=== PATIENT | female | born 2000 | race African-American/Black ===

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

== ENCOUNTER 2021-06-19 10:45 | Outpatient (REF) | payer SELFPAY ==
[2021-06-19 15:34] LABS: HCT 40.5 % (36.0-46.0); HGB 13.2 g/dL (11.2-15.7); MCH 29.1 pg (27.0-33.0); MCHC 32.6 % (32.0-36.0); MCV 89.2 fL (80-95); MPV 11.1 fL (8.0-11.0); Platelet Count 223 10^3/uL (130-400); RBC 4.54 10^6/uL (3.93-5.22); RDW 12.2 % (11.7-14.6); RDW-SD 40.6 fL; WBC 9.65 10^3/uL (4.4-10.8)
[2021-06-19 16:31] LABS: ALT 27 U/L (14-59); AST 16 U/L (15-37); Albumin 3.8 g/dL (3.4-5.0); Alkaline Phosphatase 63 U/L (46-116); Anion Gap 9.9 mmol/L (3-11); BUN 7 mg/dL (7-18); Bilirubin, Total 0.8 mg/dL (0.2-1.0); CO2 27.1 mmol/L (21.0-32.0); CREATININE 0.8 mg/dL (0.55-1.02); Calcium 8.9 mg/dL (8.5-10.1); Chloride 102 mmol/L (98-107); Glucose 76 mg/dL (74-106); Potassium 3.8 mmol/L (3.5-5.1); Sodium 139 mmol/L (136-145); Total Protein 7.2 g/dL (6.4-8.2)
== END 2021-06-19 10:46 | disposition home or self-care (01) ==
LOC: NCHCN 10:45
PROVIDERS: PCP Nurse Practitioner; Visit Provider Nurse Practitioner Family
DX: R10.32 Left lower quadrant pain (principal); M54.5 Low back pain
CPT/HCPCS: 80053; 85027; 87077; 87086; 87186

== ENCOUNTER 2023-10-29 15:54 | Emergency (ER) | payer BC, SELFPAY ==
[2023-10-29 15:58] VITALS: BP 125/93; PULSE 138; RESP 18; TEMP 37.1; O2SAT 98
--- NOTE | 2023-10-29 16:11 | ED.GENADUL_ITS ---
Discharge Plan Discharge Details Chief Complaint: PsychEval Primary Care Provider: Ginna Duval ED Provider: Adele Berkowitz Home Meds and New Rx's Prescriptions: No Action fluoxetine [Prozac] 10 MG capsule 10 mg PO DAILY albuterol sulfate [ProAir HFA] 200 PUFF HFA aerosol inhaler 2 puff Inhalation PRN PRN Patient Comments: 08/12/16 pt reports this is for excercise induced asthma. Hasnt played sports since injury. bmr Coontroll Pills 1 tab PO DAILY Medical Decision Making 23 year old female with PMhx of depression, asthma present to ED with suicidal ideation with a plan. Patient states she has had problems sleeping, and plans to take a bunch of sleeping pills, she has Unisom at home, she took 3 last night. Thoughts have been going on for a long time Not currently seeing a counselor in town. Endorses occasional marijuana, Denies alcohol or other illicit drugs. Has a Nexplanon which is . On her current menses. Work up ordered included CBC, CMP, UA, UDS tylenol and salicylate level. eval order placed. Patient placed in paper scrubs. Mom at BS and patient in line of sight of Nurses station. 1635: Upon further questioning, per Mom patient also has not eaten since Tuesday, has been isolating self. She also vomited on way over here, denies any other Vomiting or diarrhea. NS 1 Liter W/O open ordered. 1651: add on GC/Chlamydia UA order placed due to urine positive nitrates, greater than 160 ketones, no leukocytes, culture pending at this time. 1655: Poison Control called, spoke with Lc RN, they recommend routine workup which was already ordered, supportive treatment, and re-check after 4-6 hours if needed. 1747: Heart rate has improved to 89, EKG is poor quality due to artifact and technical difficulties. Meal tray at bedside. Patient does smell of ketones. Patient placed on care management list for women's wellness checkup. CBC shows no leukocytosis, anion gap 17.2, glucose of 59, food is at bedside, urine shows greater than 160 ketones moderate blood positive nitrites 5-10 RBCs negative leukocytes many bacteria culture is pending at this time, salicylates less than 2.8, acetaminophen level is less than 2 opiates are negative methadone is negative UDS does show positive THC negative for benzos. At this time patient is medically cleared for anything emergent. Will page [facility]. 1807: Spoke with psych liason with [facility], will do eval at approx 1830. 1824: Patient took a bite of peanut butter and crackers. updated on POC. 1933: [facility] with patient for eval via zoom . 2013: After eval with [facility] psych liason it has been determined they will seek inpatient treatment for voluntary placement. 2035: Call from poison Control for update, discussed labs and vital signs, patient has improved, and they will close the case. Patient is tolerating p.o. fluids and water without difficulty, patient has had a crackers and peanut butter. I did order fingerstick glucose for every 6 hours and vital signs every shift and as needed. 0.5 mg of lorazepam p.o. ordered to assist with patient's sleep and anxiety. Mom is at bedside and will stay with her throughout the night. CPSO deferred at this time. Cephalexin PO ordered to treat empirically for UTI, pending culture. 2237: Patient re-evaluation, she states she'sin and out of sleep no other complaints at this time, calm and cooperative. Will sign out to oncoming provider Stephanie Berkowitz MD. Discussed patient case and details with her she verbalized understanding. Medical Records Medical records reviewed: Yes I reviewed the patient's medical records. Lab Data Lab results reviewed: Yes I reviewed the patient's lab results. Labs: 10/29/23 16:15 Urine - Reflex from Ua Urine Culture - Pending Laboratory Tests Range/Units 10/29/23 10/29/23 16:15 16:24 WBC (4.4-10.8) 10^3/uL 5.70 RBC (3.93-5.22) 10^6/uL 5.33 H Hgb (11.2-15.7) g/dL 15.6 Hct (36.0-46.0) % 45.7 MCV (80-95) fL 86 MCH (27.0-33.0) pg 29.3 MCHC (32.0-36.0) % 34.1 RDW (11.7-14.6) % 12.2 Plt Count (130-400) 10^3/uL 323 MPV (8.0-11.0) fL 9.3 Immature Gran % 0.5 Neutrophils % 65.9 Lymphocytes % 22.5 Monocytes % 10.0 Eosinophils % 0.4 Basophils % 0.7 Nucleated RBC % (0.0-0.3) % 0.0 Absolute Neutrophils (1.2-6.7) 10^3/uL 3.76 Absolute Lymphocytes (1.2-3.4) 10^3/uL 1.28 Absolute Monocytes (0.1-0.8) 10^3/uL 0.57 Absolute Eosinophils (0.0-0.7) 10^3/uL 0.02 Absolute Basophils (0.0-0.2) 10^3/uL 0.04 Sodium (136-145) mmol/L 136 Potassium (3.5-5.1) mmol/L 3.5 Chloride (98-107) mmol/L 100 Carbon Dioxide (21.0-32.0) mmol/L 18.8 L Anion Gap (3-11) mmol/L 17.2 H BUN (7-18) mg/dL 12 Creatinine (0.55-1.02) mg/dL 1.0 Est GFR (CKD-EPI 2020) (mL/min/1.73m2) 81.69 Glucose (74-106) mg/dL 59 L Calcium (8.5-10.1) mg/dL 9.4 Total Bilirubin (0.2-1.0) mg/dL 1.1 H AST (15-37) U/L 19 ALT (14-59) U/L 14 Alkaline Phosphatase (46-116) U/L 73 Total Protein (6.4-8.2) g/dL 8.9 H Albumin (3.4-5.0) g/dL 4.6 TSH (0.36-3.74) uIU/mL 0.70 Urine Color (Yellow) Yellow Urine Clarity (Clear) Clear Urine pH (5-8) 5.5 Ur Specific Dazey (1.005-1.025) >= 1.030 H Urine Protein (Negative) mg/dL 30 H Urine Ketones (Negative) mg/dL >=160 H Urine Blood (Negative) Moderate H Urine Nitrite (Negative) Positive H Urine Bilirubin (Negative) Negative Urine Urobilinogen (Up to 0.2) mg/dL 0.2 Ur Leukocyte Esterase (Negative) Negative Urine RBC (0-2) HPF 5-10 H Urine WBC (0-5) HPF 0-2 Ur Epithelial Cells (Negative) HPF Few Urine Crystals (Negative) HPF Negative Urine Bacteria (Negative) HPF Many Urine Mucus (Negative) Trace Ur Culture Indicated? Yes Urine Glucose (Negative) mg/dL Negative Salicylates (<2.8) mg/dL < 2.8 Urine Opiates Screen (Negative) Negative Urine Methadone Screen (Negative) Negative Acetaminophen (10-30) ug/mL < 2 Ur Barbiturates Screen (Negative) Negative Ur Tricyclics Screen (Negative) Negative Ur Amphetamines Screen (Negative) Negative U Benzodiazepines Scrn (Negative) Negative Urine Cocaine Screen (Negative) Negative Ur THC Screen (Negative) Positive A Vital Signs Temp Pulse Resp BP Pulse Ox 10/29/23 15:58 37.1 C 138 H 18 125/93 H 98 ECG Data Prior ECG tracings: not available for review HPI General Mode of arrival: ambulatory . Date/Time Provider Initiated Documentation: 10/29/23 15:56 . Limitations to Documentation: no limitations . Information obtained by: patient, family, RN notes reviewed and old records reviewed . HPI Narrative: 23 year old female with PMhx of depression, asthma present to ED with suicidal ideation with a plan. Patient states she has had problems sleeping, and plans to take a bunch of sleeping pills, she has Unisom at home, she took 3 last night. Thoughts have been going on for a long time Not currently seeing a counselor in [facility]. Endorses occasional marijuana, Denies alcohol or other illicit drugs. Has a Nexplanon which is . On her current menses. Related Data Home Medications Medication Instructions Recorded Confirmed albuterol sulfate 90 mcg/actuation 2 puff inhalation PRN PRN 08/11/16 10/29/23 aerosol inhaler (ProAir HFA) Coontroll Pills 1 tab PO DAILY 02/04/18 10/29/23 fluoxetine 10 mg capsule (Prozac) 10 mg PO DAILY 02/10/18 10/29/23 Allergies Allergy/AdvReac Type Severity Reaction Status Date / Time acetaminophen Allergy Severe Other (See Unverified 03/27/18 13:03 [From Excedrin Migraine] Comment) aspirin Allergy Severe Other (See Unverified 03/27/18 13:03 [From Excedrin Migraine] Comment) caffeine Allergy Severe Other (See Unverified 03/27/18 13:03 [From Excedrin Migraine] Comment) pineapple Allergy Intermediate Swelling/Ed Unverified 03/27/18 13:03 laura misc Allergy Intermediate Pt has Uncoded 02/04/18 22:01 bloody nose from excedrin Migraine General Stated Complaint: PsychEval MELISSA: 2 Review of Systems All systems reviewed & are unremarkable except as noted in HPI and below Psychiatric Psychiatric: Reports as per HPI, Reports depression and Reports suicidal ideation PFSH All Active Problems (Updated 10/29/23 @ 16:49 by Mildred Rojo NP) Encounter for removal of subdermal contraceptive implant (Acute ~06/2018) Medical History (Updated 10/29/23 @ 16:49 by Mildred Rojo NP) History of early onset of puberty Social History Smoking/Tobacco Use Status: Never Smoking risk assessment performed?: Yes Alcohol Intake: never Drug use: Occasionally Substance use type: marijuana Do you feel safe in your relationship?: Yes Female Reproductive History Menstrual Date of last menstrual period: 10/28/23 control method: implanted ( nexplanon) Exam Narrative Exam Narrative: Constitutional: Alert and oriented x3. Appears stated age. Normal body habitus. Head: Normocephalic, no trauma. Eyes: Pupils PERRL, Red reflex noted, EOM's intact. Eyelids symmetrical without lesions, discharge, or swelling. ENT: Bilateral TM's WNL, External ear normal to inspection, no mastoid TTP, swelling, or erythema, Nasal turbinates WNL, no nasal discharge. Normal dentition, Posterior pharynx WNL, no exudate. Dry mucous membranes. Chest: RRR, Normal S1, S2, distal pulses intact. Resp: Lungs clear to auscultation bilaterally, no wheezes, rales, or rhonchi. Abdomen: Soft, non-distended, Normoactive bowel sounds all 4 quads. Musculoskeletal: Normal gait, 5/5 strength to all four extremities. Skin: See HENMT Diagram below, capillary refill less than 2 sec. Neurologic: Cranial nerves II-XII intact. Alert and oriented x 3. Motor: No deficits noted. Sensory: Intact bilaterally all 4 extremities. Hematologic/Lymphatic: No ecchymosis, no lymphadenopathy. Psych: See below, patient is tearful, sad blunted, guarded, labile affect. Suicidal ideation with plan., Cooperative at this time. Const General: cooperative, healthy appearing, well developed and other (Tearful) Nutritional Appearance: average body habitus and well nourished Orientation: alert, awake and oriented x3 HENMT Head: skull fracture palpable, not normocephalic and no lacerations Head images: 2 1. Small Approx 2 cm linear burn to right upper forehead, scabbed over, no surrounding erythema or induration. Ears: external ears normal General nose exam: external nose normal Face and sinus: normal facial exam Resp Effort & Inspection: normal respiratory effort Auscultation: clear to auscultation bilaterally Cardio Rate: tachycardic Heart Sounds: S1 normal and S2 normal Bruits: no abdominal aortic bruits Psych Appearance: well kempt Mental Status: other (Tearful) Speech and Movement: slowed movement Mood: labile mood and other (Tearful) Affect: sad and blunted Attitude: cooperative Thought Process: normal Thought Content: no delusions, no hallucinations, no homicidality and suicidality (Plan to take sleeping pills, ) Insight: insight good Judgment: fair Course Vital Signs Vital signs: Vital Signs Temperature 37.1 C 10/29/23 15:58 Pulse 138 H 10/29/23 15:58 Respiratory Rate 18 10/29/23 15:58 Blood Pressure 125/93 H 10/29/23 15:58 Pulse Oximetry 98 10/29/23 15:58 Temperature 37.1 C 10/29/23 15:58 Pulse 138 H 10/29/23 15:58 Respiratory Rate 18 10/29/23 15:58 Respiratory Effort Normal 10/29/23 16:08 Blood Pressure 125/93 H 10/29/23 15:58 Blood Pressure Position Sitting 10/29/23 15:58 Pulse Oximetry 98 10/29/23 15:58 Oxygen Delivery Method Room Air 10/29/23 15:58 Oxygen Flow Rate 0 10/29/23 15:58 Pain Level 0 10/29/23 15:58 Sign Out Sign Out Data: Sign Out Comment: 23 year old female with suicidal ideation and plans to OD on sleeping pills. 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 Took 3 tablets of Unisom last night. Presented dehydrated, received 1 liter NS, is tolerating PO fluids. Had water and anu shan. Ate one cracker with peanut butter. Received 0.5 mg Lorazepam PO prn sleep. Fingerstick glucose ordered q 6 hours. Positive for THC, positive nitrites in urine, negative for leukocytes. Culture pending. Last updated by Mildred Rojo NP at 10/29/23 22:54
[2023-10-29 16:28] LABS: Bilirubin Negative (Negative); Blood Moderate (Negative); Clarity Clear (Clear); Glucose Negative (Negative); Ketones >=160 mg/dL (Negative); Leukocyte Esterase Negative (Negative); Nitrite Positive (Negative); Specific Gravity >= 1.030 (1.005-1.025); Urobilinogen 0.2 mg/dL (Up to 0.2); pH 5.5 (5-8)
[2023-10-29 16:33] LABS: Abs Immature Grans 0.03 10^3/uL (0.0-0.06); Absolute Basophil Count 0.04 10^3/uL (0.0-0.2); Absolute Eosinophil Count 0.02 10^3/uL (0.0-0.7); Absolute Lymphocyte Count 1.28 10^3/uL (1.2-3.4); Absolute Monocyte Count 0.57 10^3/uL (0.1-0.8); Absolute Neutrophil Count 3.76 10^3/uL (1.2-6.7); Basophils % 0.7; Eosinophils % 0.4; HCT 45.7 % (36.0-46.0); HGB 15.6 g/dL (11.2-15.7); Immature Grans % 0.5; Lymphocytes % 22.5; MCH 29.3 pg (27.0-33.0); MCHC 34.1 % (32.0-36.0); MCV 86 fL (80-95); MPV 9.3 fL (8.0-11.0); Neutrophils % 65.9; Platelet Count 323 10^3/uL (130-400); RBC 5.33 10^6/uL (3.93-5.22); RDW 12.2 % (11.7-14.6); RDW-SD 38.3 fL
[2023-10-29 16:40] LABS: *AMPHETAMINES SCREEN URINE Negative (Negative); *BARBITURATES SCREEN URINE Negative (Negative); *BENZODIAZEPINES SCREEN URINE Negative (Negative); Cannabinoids THC Positive (Negative); Cocaine Screen,Urine Negative (Negative); METHADONE URINE SCREEN Negative (Negative); OPIATES URINE SCREEN Negative (Negative)
[2023-10-29 16:42] LABS: Tricyclic Antidepressants Negative (Negative)
[2023-10-29 16:44] LABS: Bacteria Many HPF (Negative); C & S Indicated? Yes; Crystals Negative HPF (Negative); Epithelial Cells Few HPF (Negative); Mucus Trace (Negative); WBC 0-2 HPF (0-5)
--- NOTE | 2023-10-29 16:45 | RT.EKG_ITS ---
APPROVED REPORT Exam: Resting ECG Reason for Exam: Cass QT, SI Patient Location: E HR:89 bpm ECG Measurements Heart Rate 89 AXIS CO 66 P 0 QRSd 76 QRS -16 QT 350 T 69 QTc 426 Conclusion Sinus rhythm significant motion artificat
[2023-10-29] MEDS: Normal Saline 1,000 ML 1000 ML IV (16:48)
[2023-10-29 16:56] LABS: ALT 14 U/L (14-59); AST 19 U/L (15-37); Albumin 4.6 g/dL (3.4-5.0); Alkaline Phosphatase 73 U/L (46-116); Anion Gap 17.2 mmol/L (3-11); BUN 12 mg/dL (7-18); Bilirubin, Total 1.1 mg/dL (0.2-1.0); CO2 18.8 mmol/L (21.0-32.0); Calcium 9.4 mg/dL (8.5-10.1); Chloride 100 mmol/L (98-107); Estimated GFR 81.69 (mL/min/1.73m2); Glucose 59 mg/dL (74-106); Potassium 3.5 mmol/L (3.5-5.1); Sodium 136 mmol/L (136-145); Total Protein 8.9 g/dL (6.4-8.2)
[2023-10-29 17:00] LABS: Acetaminophen < 2 ug/mL (10-30); Salicylate < 2.8 mg/dL (<2.8)
--- NOTE | 2023-10-29 17:13 | NUR.NOTE ---
Referral faxed to [facility] for breast lump, history early onset puberty, explanon needs removal. In 2 to 3 weeks. Nursing Note:
--- NOTE | 2023-10-29 17:30 | RT.EKG_ITS ---
APPROVED REPORT Exam: Resting ECG Reason for Exam: tachycardia Patient Location: E HR:69 bpm ECG Measurements Heart Rate 69 AXIS VT 189 P 49 QRSd 84 QRS 31 QT 386 T 51 QTc 415 Conclusion Sinus rhythm normal axis normal intervals
[2023-10-29 18:41] VITALS: PULSE 83; O2SAT 99
--- NOTE | 2023-10-29 20:34 | PDOC.MHCN ---
Date of service: 10/29/23 Time of Service: 20:34 PHQ-9 Over the last 2 weeks, how often have you been bothered by any of the following problems? 1. Little interest or pleasure in doing things: more than half the days 2. Feeling down, depressed, or hopeless: nearly every day 3. Trouble falling or staying asleep, or sleeping too much: nearly every day 4. Feeling tired or having little energy: more than half the days 5. Poor appetite or overeating: several days 6. Feeling bad about yourself - or that you are a failure or have let yourself and your family down: nearly every day 7. Trouble concentrating on things, such as reading the newspaper or watching television: more than half the days 8. Moving or speaking so slowly that other people could have noticed? - Or the opposite - being so fidgety or restless that you have been moving around a lot more than usual: not at all 9. Thoughts that you would be better off or of hurting yourself in some way: nearly every day Total score: 19 If you checked off any problems, how difficult have these problems made it for you to do your work, take care of things at home, or get along with other people?: very difficult PHQ-9 Results: Positive Source: Developed by Drs. Jv Carpio, Erika Aly, Gonzalez Calle and colleagues, with an educational neri from [employer]. Suicide Severity Rate CSSRS Have you wished you were or wished you could go to sleep and not wake up?: Yes Have you actually had any thoughts of killing yourself?: Yes CSSRS2 Have you been thinking about how you might do this?: Yes Have you had these thoughts and had some intention of acting on them?: Yes Have you started to work out or worked out the details of how to kill yourself? Do you intend to carry out this plan?: Yes CSSRS3 Have you ever done anything, started to do anything or prepared to do anything to end your life?: Yes CSSRS4 Was this within the past three months?: No Screening Score Total Score: 6 Screening: Positive Mental Health Emergency Note Release [facility] release signed:: Yes Reason for Visit The client presented to the ED with SI and plan. The client is requesting help. In the last 2 weeks has the pt presented for ES prior to today?: Unknown Client Information Client is: New Well Housed: Yes Non Suicidal Self Injury Current: Yes, burned with a curling iron on fore head History: yes, burning via curling iron or hot comb. Safety Risk/Harm to Self or Others Current Ideation to Harm Self or Others: Yes to self. Intent: yes, has intent. Plan: yes,has a plan. History of suicide attempt: yes,history of suicide attempt reported. Details of previous suicide attempt: Not disclosed. Risk: Does risk to harm exist?: yes. Access to means: Yes. Types of Means: Other weapons and Medication. Counseling provided: Yes Risk: Moderate Risk Duty to warn indicated: No Asssessment/Mental Status Appearance: Well groomed Attitude: Cooperative and Friendly Behavior: Unremarkable Speech: Soft Affect: Cogruent with mood Mood: Sad and Depressed Thought process: Goal directed Hallucinations: No Delusions: No Attention: Unremarkable Perception: Not impaired Orientation: Fully orientated Memory: Intact Insight: Good Judgement: Good Neurovegetative Symptoms Sleep: No change (Uses OTC sleep aids to sleep. ) Appetitie: Decrease Interests: Decrease Energy: Decrease Libido: Not applicable Substance Use: Drug Issues: Dependence Have you used substances in the last 7 days?: No Additional Issues: Assaultive/Threatening Behavior: No Medical Concerns: No Client engaged in active self harm w/weapon: No Threatening to run away: No Child reported abuse/neglect: No Voluntarily presenting for services: Yes Domestic violence is a concern: No Extreme Psychosis or extreme behavior is present: No Impression The client is a 23 year old, Black, female who currently resides with her adoptive mother in [facility]. 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 She reported that she has had ongoing SI and that her thoughts and the intensity of the thoughts have increased significantly within the last month with no identifiable stressor. She described these thoughts as persistent and daily. She reported that she uses OTC sleep meds to help her sleep at night and that last night she thought about overdosing but aborted that idea. She self reported her risk level a 6/10. She also states, I don't want to do it. The client also disclosed that she engages in NSSI via burning herself with a curling iron or hot comb. The client is tearful as she talks about her current mental health struggles. She scored a 19/27 on the PHQ-9 this evening. She answered all yeses to the CSSRS this evening. The client's reported symptoms and scores suggest a diagnosis of a MDD recurrent moderate. This clinician discussed possible options for treatment. Resources Reosurces reviewed and given:: [facility] Plan/Disposition Recommended Disposition: Hospitalization (Referral sent) No. Plan: The client is requesting an intense inpatient treatment to assist her in getting on track more quickly. She does not have a PCP so it will be requested that [facility] assist her in getting set up with a new provider appointment. This clinical note along with medical clearance will be faxed out to get her on the lists for hospitals. Person reported agreement to plan: Yes Reports/communication Outcome discussed with: ED/Personnel
[2023-10-29] MEDS: LORazepam 0.5 MG TAB PO (21:05)
--- NOTE | 2023-10-29 22:58 | W.EDPROG ---
Date of service: 10/29/23 Time of Service: 22:58 Medical Decision Making This patient was signed out to me. Please see previous notes for H&P and initial eval. In brief, 23yo F presenting with SI, pending voluntary psych placement. Slept most of the night. No acute events. Signed out to oncoming physician, remains pending placement. Sign Out Sign Out Data: Sign Out Comment: 23 year old female with suicidal ideation and plans to OD on sleeping pills. 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 Took 3 tablets of Unisom last night. Presented dehydrated, received 1 liter NS, is tolerating PO fluids. Had water and anu shan. Ate one cracker with peanut butter. Received 0.5 mg Lorazepam PO prn sleep. Fingerstick glucose ordered q 6 hours. Positive for THC, positive nitrites in urine, negative for leukocytes. Culture pending. Last updated by Mildred Rojo NP at 10/29/23 22:54 Sign Out Comment: SI, has not been eating, attempted OD on 3 unisom. UA with nitrates, getting keflex, need urine for G&C. Pending voluntary placement. Last updated by Adele Berkowitz MD at 10/30/23 06:22 Discharge Plan Discharge Details Chief Complaint: PsychEval Primary Care Provider: Ginna Duval ED Provider: Adele Berkowitz Home Meds and New Rx's Prescriptions: No Action fluoxetine [Prozac] 10 MG capsule 10 mg PO DAILY albuterol sulfate [ProAir HFA] 200 PUFF HFA aerosol inhaler 2 puff Inhalation PRN PRN Patient Comments: 08/12/16 pt reports this is for excercise induced asthma. Hasnt played sports since injury. bmr Coontroll Pills 1 tab PO DAILY
[2023-10-29] MEDS: Cephalexin 500 MG CAP PO (23:53)
--- NOTE | 2023-10-30 05:54 | NUR.NOTE ---
Faxed face sheet to [facility]
[2023-10-30] MEDS: Cephalexin 500 MG CAP PO (09:12)
--- NOTE | 2023-10-30 13:32 | ED.PROG_ITS ---
Date of service: 10/30/23 Time of Service: 13:32 Medical Decision Making Care was signed out by Dr. Mackey, patient here voluntarily for SI awaiting psychiatric treatment facility placement. Patient has remained stable here on voluntary hold today. Received call from [facility], Dr. Caldera will accept the patient in transfer. Offered doc to doc was declined. Sign Out Sign Out Data: Sign Out Comment: 23 year old female with suicidal ideation and plans to OD on sleeping pills. 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 Took 3 tablets of Unisom last night. Presented dehydrated, received 1 liter NS, is tolerating PO fluids. Had water and anu shan. Ate one cracker with peanut butter. Received 0.5 mg Lorazepam PO prn sleep. Fingerstick glucose ordered q 6 hours. Positive for THC, positive nitrites in urine, negative for leukocytes. Culture pending. Last updated by Mildred Rojo NP at 10/29/23 22:54 Sign Out Comment: SI, has not been eating, attempted OD on 3 unisom. UA with nitrates, getting keflex, need urine for G&C. Pending voluntary placement. Last updated by Adele Berkowitz MD at 10/30/23 06:22 Discharge Plan Disposition Patient Disposition: Psychiatric Hospital/Unit Specific Psychiatric Facility: [facility] Condition: Serious Discharge Details Chief Complaint: PsychEval Clinical Impression: Suicide ideation Primary Care Provider: Ginna Duval ED Provider: Adele Berkowitz Home Meds and New Rx's Prescriptions: No Action fluoxetine [Prozac] 10 MG capsule 10 mg PO DAILY albuterol sulfate [ProAir HFA] 200 PUFF HFA aerosol inhaler 2 puff Inhalation PRN PRN Patient Comments: 08/12/16 pt reports this is for excercise induced asthma. Hasnt played sports since injury. bmr Coontroll Pills 1 tab PO DAILY
== END 2023-10-30 14:45 ==
PROVIDERS: Registered Nurse Emergency; Emergency Provider Student in an Organized Health Care Education/Training Program; PCP Nurse Practitioner
DX: T45.0X2A Poisoning by antiallergic and antiemetic drugs, intentional self-harm, initial encounter (principal); F32.A Depression, unspecified; E86.0 Dehydration; N39.0 Urinary tract infection, site not specified; B96.20 Unspecified Escherichia coli [E. coli] as the cause of diseases classified elsewhere
CPT/HCPCS: 00123; 80053; 80307; 81025; 87077; 93005; 96127; 96360; 99285; 80329; 81003; 81015; 84443; 85025; 87086; 87186; 93010

== ENCOUNTER 2024-02-29 14:54 | Outpatient (REF) | payer BC, SELFPAY ==
[2024-02-29 14:48] LABS: Abs Immature Grans 0.01 10^3/uL (0.0-0.06); Absolute Basophil Count 0.04 10^3/uL (0.0-0.2); Absolute Eosinophil Count 0.03 10^3/uL (0.0-0.7); Absolute Lymphocyte Count 1.15 10^3/uL (1.2-3.4); Absolute Monocyte Count 0.62 10^3/uL (0.1-0.8); Absolute Neutrophil Count 3.47 10^3/uL (1.2-6.7); Basophils % 0.8; Eosinophils % 0.6; HCT 44.6 % (36.0-46.0); HGB 14.8 g/dL (11.2-15.7); Immature Grans % 0.2; Lymphocytes % 21.6; MCHC 33.2 % (32.0-36.0); MCV 88 fL (80-95); MPV 10.4 fL (8.0-11.0); Monocytes % 11.7; Neutrophils % 65.1; Platelet Count 301 10^3/uL (130-400); RDW 12.4 % (11.7-14.6); RDW-SD 40.1 fL; WBC 5.32 10^3/uL (4.4-10.8)
[2024-02-29 15:05] LABS: Hemoglobin A1C 5.2 % (<5.7)
[2024-02-29 15:17] LABS: ALT 20 U/L (14-59); AST 22 U/L (15-37); Alkaline Phosphatase 89 U/L (46-116); Anion Gap 12.5 mmol/L (3-11); BUN 10 mg/dL (7-18); Bilirubin, Total 0.7 mg/dL (0.2-1.0); CO2 24.5 mmol/L (21.0-32.0); CREATININE 0.7 mg/dL (0.55-1.02); Calcium 9.2 mg/dL (8.5-10.1); Calculated LDL 109 mg/dL (<100); Chloride 104 mmol/L (98-107); Cholesterol 211 mg/dL (<200); Estimated GFR 125.33 (mL/min/1.73m2); Glucose 71 mg/dL (74-106); HDL Cholesterol 89 mg/dL (40-60); Potassium 4.2 mmol/L (3.5-5.1); Sodium 141 mmol/L (136-145); Total Protein 7.9 g/dL (6.4-8.2); Triglyceride 66 mg/dL (<150)
[2024-02-29 15:31] LABS: Vitamin D 25 Total 10.1 ng/mL (30-100)
[2024-03-07 10:43] LABS: Testosterone, Free 1.46 ng/dL (<0.13-1.08); Testosterone, Total 39 ng/dL (8-60)
== END 2024-02-29 14:55 | disposition home or self-care (01) ==
LOC: NCHCN 14:54
PROVIDERS: PCP Nurse Practitioner Family; Visit Provider Family Medicine
DX: F31.81 Bipolar II disorder (principal); E28.2 Polycystic ovarian syndrome; R42 Dizziness and giddiness; E55.9 Vitamin D deficiency, unspecified
CPT/HCPCS: 80053; 80061; 82306; 84402; 84403; 83036; 85025

== ENCOUNTER → 2024-03-02 00:23 | Outpatient (CLI) | payer BC, SELFPAY ==
--- NOTE | 2024-03-02 14:48 | DI.RAD_ITS ---
Exam(s) XR HUMERUS RT EXAM: XR HUMERUS RT CLINICAL HISTORY: SURVEILLANCE OF CONTRACEPTIVE IMPLANT,Z30.46,NONPALPABLE NEXPLANON. TECHNIQUE: 2D digital imaging was performed of the right humerus. Two images were obtained. AP and lateral views were obtained. COMPARISON: No exams were available for comparison FINDINGS: BONES: No acute fracture is present. No bony destructive lesion is seen. Visualized portion of elbow and shoulder joints are unremarkable. SOFT TISSUE: The linear subcutaneous implant is seen in the medial right upper extremity soft tissues . It lies at about the level of the midshaft of the right humerus. IMPRESSION: Implant device is seen in the soft tissues of the right upper extremity as described above. DATA REPOSITORY: RADIATION DOSE DELIVERED:
== END ==
PROVIDERS: PCP Nurse Practitioner Family; Visit Provider Family Medicine
DX: Z30.46 Encounter for surveillance of implantable subdermal contraceptive (principal)
CPT/HCPCS: 73060

== ENCOUNTER 2024-05-11 12:08 | Outpatient (REF) | payer BC, SELFPAY ==
--- NOTE | 2024-05-11 10:20 | PAPFT_PTH ---
PATIENT: Violeta Vidales LOC: [facility] U#:[id number] AGE/SX: 23/F ROOM: RE05/11/[address]: Telma Lopez MD : 2000 BED: DIS: 05/11/2024 SPEC #: [id number] RECD: 05/11/24 17:38 STATUS: KRYSTINA REAnnette #: [id number] BENITA: 05/11/24 10:[address]: Telma Lopez DEPT: [facility] Cytology RECD BY: Negin Boyd ENTERED: 05/11/24 17:38 SP TYPE: PAPFT OTHR DR: Magda Cespedes Tissues: 1 - CX/ENDOCX FOR PAP SMEARS Procedures: PAP THIN PREP/UVM Screening Comments: [id number] (CHLAMYDIA/GC)
[2024-05-15 14:35] LABS: Chlamydia Result Negative (Negative); GC Result Negative (Negative)
== END 2024-05-11 12:09 | disposition home or self-care (01) ==
LOC: LBN 12:08
PROVIDERS: PCP Nurse Practitioner Family; Visit Provider Obstetrics & Gynecology
DX: A74.9 Chlamydial infection, unspecified (principal)
CPT/HCPCS: 87491; 87591; 88142